=== PATIENT | female | born 1955 | race Caucasian/White ===

== ENCOUNTER 2024-08-04 18:10 | Emergency (ER) | payer MEDICARE, MEDICAID ==
[~2024-08-04] VITALS: Ht 149.9 cm; Wt 83.0 kg
[2024-08-04 18:50] LABS: BASOPHILS % (AUTO) 0.9 % (0-1); EOSINOPHILS # (AUTO) 0.1 X10'3 (0-0.9); EOSINOPHILS % (AUTO) 2.6 % (0-6); HEMATOCRIT 41.1 % (35.0-45.0); HEMOGLOBIN 13.4 g/dl (12.0-16.0); LYMPHOCYTES # (AUTO) 1.7 X10'3 (1.1-4.8); LYMPHOCYTES % (AUTO) 36.6 % (21-51); MEAN CORPUSCULAR HEMOGLOBIN 28.7 PG (27.0-31.0); MEAN CORPUSCULAR HGB CONC 32.6 g/dL (33.0-36.5); MEAN CORPUSCULAR VOLUME 88.1 FL (78-98); MEAN PLATELET VOLUME 6.9 FL (7.4-10.4); MONOCYTES # (AUTO) 0.4 X10'3 (0-0.9); MONOCYTES % (AUTO) 9.6 % (2-12); NEUTROPHILS # (AUTO) 2.3 X10'3 (1.8-7.7); NEUTROPHILS % (AUTO) 50.3 % (42-75); PLATELET COUNT 340 X10'3 (140-440); RED BLOOD COUNT 4.67 X10'6 (4.20-5.60); RED CELL DISTRIBUTION WIDTH 14.7 % (11.5-14.5); WHITE BLOOD COUNT 4.6 X10'3 (4.5-11.0)
[2024-08-04 18:56] LABS: PROTHROMBIN TIME 10.2 SECONDS (9.0-12.0)
[2024-08-04 18:57] LABS: ALBUMIN 3.9 G/DL (3.4-5.0); ANION GAP 7 (8-16); BLOOD UREA NITROGEN 21 MG/DL (7-18); BUN/CREATININE RATIO 30.9 (10.0-20.0); CHLORIDE 103 MMOL/L (99-107); CREATININE 0.68 MG/DL (0.40-0.90); GLUCOSE 88 MG/DL (70-104); POTASSIUM 3.9 MMOL/L (3.5-5.1); SODIUM 137 MMOL/L (135-145); TOTAL CARBON DIOXIDE 27.3 MMOL/L (24-32); eCRCL 53 ML/MIN; eGFR 86 ML/MIN
[2024-08-04] MEDS ORDERED: [UNRECOGNIZED DRUG - CODE] PO (23:32)
[2024-08-04] MEDS ORDERED: VALA100031 PO (23:32)
[2024-08-04] MEDS: dexamethasone 4mg tablet PO ONE (23:50)
[2024-08-04] MEDS: valacyclovir 500mg tablet PO ONE (23:51)
[2024-08-04 23:56] VITALS: BP 148/90; PULSE 82; RESP 16; TEMP 97.8; O2SAT 98
== END 2024-08-04 23:59 | disposition home or self-care (01) ==
LOC: ER 18:11
DX: G51.0 Bell's palsy (principal); I10 Essential (primary) hypertension; Z88.8 Allergy status to other drugs, medicaments and biological substances
CPT/HCPCS: 36415; 70450; 71045; 80048; 82948; 85025; 85610; 93005; 99285

== ENCOUNTER 2024-09-05 17:43 | Emergency (ER) | payer MEDICARE, MEDICAID ==
[~2024-09-05] VITALS: Ht 149.9 cm; Wt 93.6 kg
[~2024-09-05 17:43] MED LIST: DEC4T PO; VALA100031 PO; [UNRECOGNIZED DRUG - CODE] PO
--- NOTE | 2024-09-05 17:59 | Physician Documentation ---
History of Present Illness ~ Chief Complaint: Shoulder pain Stated Complaint: SHOLDER PAIN Time Seen by MD: 17:53 HPI Patient is seen today with complaints of pain of her right upper back/scapula area. Patient states her pain started just a few days ago. Patient states she has a hard time lifting her right arm nail. She denies any injury specifically but states she may have been over using her right arm. She denies any chest pain or shortness of breath or abdominal pain or nausea, vomiting, diarrhea or diaphoresis. She has no other concern or complaint at this time. Tetanus within 5 years?: Yes Medication Reconciliation Allergies: Coded Allergies: prednisone (Verified Allergy, Unknown, 08/04/24) Scheduled Dexamethasone* (Decadron*), 1 TAB PO BID Prednisolone Sod Phosphate (Prednisolone Sodium Phosphate), 1 TAB PO Q12H Valacyclovir HCl (Valacyclovir), 1 TAB PO Q8H Review of Systems Constitutional: Denies: chills, fever, weakness Eyes: Denies: pain, blurred vision ENT: Denies: ear pain, nose pain, throat pain, mouth pain Respiratory: Denies: cough, shortness of breath Cardiovascular: Denies: chest pain, palpitations Gastrointestinal: Denies: abdominal pain, nausea, vomiting Genitourinary: Denies: burning, dysuria Female Genitalia: Denies: vaginal discharge, pelvic pain Neurological: Denies: headache, dizziness Musculoskeletal: Denies: pain, swelling Integumentary: Denies: rash, lesions Allergic/Immunologic: Denies: hives, itching Hematologic/Lymphatic: Denies: no symptoms reported Psychiatric: Denies: depression, anxiety Physical Exam Vital Signs: Temperature: 98.0, Heart Rate: 92, Respiratory Rate: 17, BP: 135/88, Pulse Oximetry: 97, Weight: 93.640 Oxygen Flow Rate: 0 Physical Exam General: Awake and Alert, no acute distress. HEENT: Conjunctiva pink, Sclera clear, Mucus Membranes moist. Neck: Supple without masses and tenderness. Resp: Unlabored. Lungs clear to auscultation bilaterally. Heart: Regular Rate and rhythm, normal S1 and S2 without murmur, rub or gallop. Musculoskeletal: Patient on exam does have significant tenderness to palpation in the levator scapulae area and paraspinal muscles with muscle spasm present on palpation. Patient is neurovascularly intact distally. Motor function is intact distally. Patient has decreased range of motion of the shoulder in abduction due to pain. Extremities: No cyanosis,clubbing or edema. Skin: Warm and Dry. Progress Results/Orders Results/Orders Completed Orders - ARIE PAYTON Ketorolac Trometh 30mg/Ml Vial (Toradol (09/05/24 17:54) Vital Signs 09/05/24 17:48 Temp 98.0 Pulse 92 Resp 17 B/P (MAP) 135/88 Pulse Ox 97 O2 Flow Rate 0 Medical Decision Making Findings Patient is seen today with complaints of pain of her right upper back/scapula area. Patient states her pain started just a few days ago. Patient states she has a hard time lifting her right arm nail. She denies any injury specifically but states she may have been over using her right arm. She denies any chest pain or shortness of breath or abdominal pain or nausea, vomiting, diarrhea or diaphoresis. She has no other concern or complaint at this time. Patient did get injection of Toradol IM 30 mg in the ED today. Patient will follow up with ortho and/or follow up with primary care in 1-2 weeks if no better as needed sooner for referral to physical therapy. Prescription of meloxicam 15 mg one tab to be taken by mouth once a day with food and do not take any other NSAID or ibuprofen or naproxen with this medication. Also prescription of muscle relaxer methocarbamol sent to patient pharmacy. Shared decision-making utilized today with the patient. Departure Disposition: HOME / SELF CARE / HOMELESS Impression: Primary Impression: Shoulder pain Qualified Codes: M25.511 - Pain in right shoulder Condition: Improved Discharge Instructions: Shoulder Pain Additional Instructions: Patient did get injection of Toradol IM 30 mg in the ED today. Patient will follow up with ortho and/or follow up with primary care in 1-2 weeks if no better as needed sooner for referral to physical therapy. Prescription of meloxicam 15 mg one tab to be taken by mouth once a day with food and do not take any other NSAID or ibuprofen or naproxen with this medication. Also prescription of muscle relaxer methocarbamol sent to patient pharmacy. Shared decision-making utilized today with the patient. Referrals: NO PRIMARY CARE PROVIDER (PCP) Prescriptions Methocarbamol (Methocarbamol) 750 Mg Tablet 1 TAB PO Q8H for 30 Days, #90 TAB 0 Refills Prov: ARIE PAYTON 09/05/24 Meloxicam (Meloxicam) 15 Mg Tablet 1 TAB PO DAILY for 30 Days, #30 TAB 0 Refills Prov: ARIE PAYTON 09/05/24 Signature Scribe Signature: No scribe Attestation: No scribe ARIE PAYTON September 05, 2024 17:59
[2024-09-05] MEDS: ketorolac trometh 30MG/ML vial 30 MG/ML VIAL IM STA (19:20)
[2024-09-05] MEDS ORDERED: METH-798 PO (19:21)
[2024-09-05] MEDS ORDERED: MELO-102 PO (19:21)
[2024-09-05 19:32] VITALS: BP 132/86; PULSE 90; RESP 18; TEMP 98.6; O2SAT 99
== END 2024-09-05 19:37 | disposition home or self-care (01) ==
LOC: ER 17:43
DX: M25.511 Pain in right shoulder (principal); Z88.8 Allergy status to other drugs, medicaments and biological substances
CPT/HCPCS: 96372; 99283; J1885

== ENCOUNTER 2024-12-02 16:24 | Emergency (ER) | payer MEDICARE, MEDICAID ==
[~2024-12-02] VITALS: Ht 149.9 cm; Wt 91.9 kg
[~2024-12-02 16:24] MED LIST changes: -DEC4T PO; +MELO-102 PO; +METH-798 PO
[2024-12-02 17:42] VITALS: BP 162/117; PULSE 107; RESP 16; O2SAT 99
--- NOTE | 2024-12-02 17:54 | Physician Documentation ---
History of Present Illness ~ Chief Complaint: Abscess Stated Complaint: HAND PAIN Time Seen by MD: 17:48 HPI This is a 69-year-old female that presents to the emergency department for evaluation of an abscess located on the dorsal aspect of her left hand. Patient reports that she has had 1 of these before approximately 2 weeks ago heal on its own. Patient reports that she had several scratches on her left arm that may have been the source of the original infection. Denies any pain fevers nausea or vomiting at this. Patient denies any significant past medical history and no allergies to medication. Tetanus Within 5 Years: Yes Medication Reconciliation Allergies: Coded Allergies: prednisone (Verified Allergy, Unknown, 08/04/24) Scheduled Cephalexin*Monohydrate* (Keflex*), 1 CAP PO QID Meloxicam (Meloxicam), 1 TAB PO DAILY Methocarbamol (Methocarbamol), 1 TAB PO Q8H Prednisolone Sod Phosphate (Prednisolone Sodium Phosphate), 1 TAB PO Q12H Sulfamethoxazole/Trimethoprim (Bactrim Ds Tablet), 1 TAB PO Q12H Valacyclovir HCl (Valacyclovir), 1 TAB PO Q8H Review of Systems ROS As stated above in the HPI, otherwise all systems are reviewed and negative. Physical Exam Vital Signs: Temperature: 98.8, Source: Oral, Heart Rate: 107, Respiratory Rate: 16, BP: 162/117, Pulse Oximetry: 99, Weight: 91.900 Oxygen Flow Rate: 0 Physical Exam VITALS: Reviewed and as above. GENERAL: Alert, no apparent distress. MUSCULOSKELETAL No deformities, no edema SKIN: Warm and dry, small abscess and erythema to dorsal aspect of the left hand, NEURO: Oriented x4, No motor or sensory deficit PSYCH: Normal mood and affect, no agitation Progress Results/Orders Results/Orders Orders - STEPHANIE WATERS [employer] ([employer]er) Routine C&S+Gram St (12/02/24 17:54) Vital Signs 12/02/24 12/02/24 16:26 17:42 Temp 98.8 98.8 Pulse 109 107 Resp 16 16 B/P (MAP) 224/156 162/117 (132) Pulse Ox 96 99 O2 Flow Rate 0 0 Medical Decision Making Findings This patient presents with a painful fluid pocket with fluctuance and surrounding induration and erythema, concerning for an abscess of dorsal aspect of the left hand. The abscess was anesthetized with lidocaine and then I&D was performed with deloculation and purulence was expressed. There is no lymphangitic spread visible. Low concern for osteomyelitis. Patient is not immunocompromised, and there is no bullae, pain out of proportion, or rapid progression concerning for necrotizing fasciitis. Patient to be discharged home with bactrim and keflex with follow up with their PMD. Differential Dx:Considerations: Include: Abscess, Bacteremia, Cellulitis, Erysipelas, Felon, Gas gangrene, Hidrademitis suppurativa, Impetigo, Lymphangitis, Osteromyelitis, Paronychia, Septicemia, Other Departure Disposition: 01 HOME / SELF CARE / HOMELESS Impression: Primary Impression: Wound Additional Impression: Abscess Condition: Stable Discharge Instructions: Abscess, Care After, Skin Abscess, [id number] Additional Instructions: You were seen in the emergency department for an abscess to your left hand.. He had been prescribed antibiotics, please take them until the prescription is gone. Follow up with your primary care provider. Please report to the emergency department if you develop any fevers swelling, any recurrent symptoms or any additional concerning symptoms. Referrals: NO PRIMARY CARE PROVIDER (PCP) Prescriptions Sulfamethoxazole/Trimethoprim (Bactrim Ds Tablet) 800 Mg-160 Mg Tablet 1 TAB PO Q12H for 7 Days, #14 TAB Prov: STEPHANIE WATERS 12/02/24 Cephalexin*Monohydrate* (Keflex*) 500 Mg Capsule 1 CAP PO QID for 7 Days, #28 CAP Prov: STEPHANIE WATERS 12/02/24 Education Educated: Patient Educated regarding: diagnosis, treatment, need for follow up Signature Scribe Signature: . Attestation: Scribed for Stephanie Waters by GENEVIEVE Carreno . 12/02/24 18:31 STEPHANIE WATERS Dec 02, 2024 17:54
[2024-12-02 18:29] VITALS: TEMP 98.8
[2024-12-02] MEDS ORDERED: SULF1TAB49 PO (18:29)
[2024-12-02] MEDS ORDERED: CEPH-585 PO (18:29)
== END 2024-12-02 18:34 | disposition home or self-care (01) ==
LOC: ER 16:24
DX: L02.512 Cutaneous abscess of left hand (principal); Z88.8 Allergy status to other drugs, medicaments and biological substances
CPT/HCPCS: 10060; 87070; 99283; A6258; A6402; A6449